=== PATIENT | female | born 1955 | race Caucasian/White ===

== ENCOUNTER 2016-11-28 13:34 | Inpatient (IN) | payer OTHER, MEDICARE ==
[~2016-11-28] VITALS: Ht 180.3 cm; Wt 112.0 kg
[~2016-11-28 13:34] MED LIST: ACET325S8 PO; ENOX40P SQ; HYDR-3580 PO; LEFL20TA7 PO; LEVO150T7 PO; ROPI2 PO; VITA-13 PO; Z.0.COMMODE-3:1; [UNRECOGNIZED DRUG - OTHER]
[2016-11-30] MEDS ORDERED: ROPI2TAB PO (14:36)
[2016-11-30] MEDS ORDERED: VERA1TAB10 PO (14:36)
[2016-11-30] MEDS ORDERED: HYDR-3580 PO (14:36)
[2016-11-30] MEDS ORDERED: LEFL1TAB3 PO (14:36)
[2016-11-30] MEDS ORDERED: LEVO150T7 PO (14:36)
[2016-11-30] MEDS ORDERED: CYCL1TAB29 PO (14:37)
[2016-11-30] MEDS ORDERED: CHOL50008 PO (14:40)
[2016-11-30] MEDS ORDERED: INUL6.5C PO (14:40)
[2016-11-30] MEDS ORDERED: VITA10004 PO (14:40)
[2016-11-30] MEDS ORDERED: CALCTAB75 PO (14:40)
[2016-12-04] MEDS ORDERED: SODIUM CHLORID 0.9% 500 ML IV PRN (05:30)
[2016-12-04] MEDS ORDERED: CHLORHEXIDINE GLUCONATE 2 % 1 PACK (2 CLOTHS) TOPICAL PRN (05:30)
[2016-12-04] MEDS ORDERED: LACTATED RINGER'S 1000 ML IV PRN (05:30)
[2016-12-04] MEDS ORDERED: POVIDONE IODINE 5% (ANTISEPSIS KIT) 4 APPLICATIONS EACH NARE PRN (05:30)
[2016-12-04] MEDS ORDERED: METOPROLOL TARTRATE 25 MG TAB PO PRN (05:30)
[2016-12-04] MEDS ORDERED: INSULIN HUMAN REGULAR 1,000 UNITS/10 ML VIAL SQ PRN (05:30)
[2016-12-04] MEDS ORDERED: SODIUM CHLORIDE 0.9% INJ 100 ML ONE (05:43)
[2016-12-04] MEDS ORDERED: CHLORHEXIDINE GLUCONATE 4% SOLN 120 ML BTL TOPICAL SCH (05:45)
[2016-12-04] MEDS ORDERED: VANCOMYCIN 1000 MG/NS 250 ML (for <70 kg) IV SCH ×2 (05:45)
[2016-12-04] MEDS ORDERED: POVIDONE IODINE 7.5% SCRUB 118 ML BOTTLE TOPICAL SCH (05:45)
[2016-12-04] MEDS ORDERED: CLINDAMYCIN 900 MG/NS 100 ML IV SCH ×2 (05:45)
[2016-12-04 05:53] VITALS: BP 179/89; PULSE 70; RESP 20; TEMP 98.1; O2SAT 99
[2016-12-04] MEDS ORDERED: GENTAMICIN SULFATE 80 MG/2 ML VIAL ONE (06:15)
[2016-12-04] MEDS ORDERED: DEXAMETHASONE SOD PHOS 4 MG/ML VIAL ONE (06:36)
[2016-12-04] MEDS ORDERED: fentaNYL CITRATE 250 MCG/5 ML AMP ONE (06:36)
[2016-12-04] MEDS ORDERED: HYDROmorphone HCL PF 2 MG/ML VIAL ONE (06:36)
[2016-12-04] MEDS ORDERED: FAMOTIDINE 20 MG/2 ML VIAL ONE (06:36)
[2016-12-04] MEDS ORDERED: MIDAZOLAM HCL 2 MG/2 ML VIAL ONE (06:36)
[2016-12-04] MEDS: SODIUM CHLOR 0.9% 1000 ML INJ 1,000 ML IV SCH ×2 (06:41→15:34)
[2016-12-04] MEDS ORDERED: HYDR-3288 PO (06:44)
[2016-12-04] MEDS ORDERED: ZOLPIDEM TARTRATE 5 MG TAB PO PRN (06:45)
[2016-12-04] MEDS ORDERED: HYDROmorphone HCL PF 2 MG/ML VIAL IV PRN (06:45)
[2016-12-04] MEDS ORDERED: ACETAMINOPHEN/HYDROcodone 325 MG/7.5 MG TAB PO PRN (06:45)
[2016-12-04] MEDS ORDERED: ONDANSETRON HCL 4 MG/2 ML VIAL IVP PRN (06:45)
[2016-12-04] MEDS ORDERED: NALOXONE HCL 0.4 MG/ML AMP IV PRN (06:45)
[2016-12-04] MEDS ORDERED: BISACODYL 10 MG SUPP RECTAL PRN (06:45)
[2016-12-04] MEDS ORDERED: SODIUM CHLORIDE 0.9% FLUSH 5 ML FLUSH IVF PRN (06:45)
[2016-12-04] MEDS ORDERED: ALUMINUM/MAGNESIUM/SIMETH 30 ML CUP PO PRN (06:45)
[2016-12-04] MEDS ORDERED: Post-op Orders (for Pharmacy) MISC XX ONE (06:45)
[2016-12-04] MEDS ORDERED: diphenhydrAMINE HCL 50 MG/ML VIAL IV PRN (06:45)
[2016-12-04] MEDS ORDERED: TRANEXAMIC ACID IV SCH (07:00)
[2016-12-04] MEDS ORDERED: TRANEXAMIC PERI-ARTICULAR 3,000 MG/NS 100 ML P-ARTICULR SCH ×2 (07:00)
[2016-12-04] MEDS ORDERED: EXPAREL PERI-ARTICULAR INJECTION (TOTAL VOL. 60 ML) P-ARTICULR SCH ×2 (07:00)
[2016-12-04] MEDS ORDERED: SODIUM CHLORIDE 0.9% IV SCH (07:00)
[2016-12-04] MEDS: SODIUM CHLORIDE 0.9% FLUSH 5 ML FLUSH IVF SCH ×2 (09:00→19:39)
[2016-12-04] MEDS: VERAPAMIL HCL 180 MG SUSTAINED RELEASE TAB PO SCH (09:00)
[2016-12-04] MEDS ORDERED: DO NOT ADM ANY ANTICOAGULANT DRUGS PRN (09:15)
[2016-12-04] MEDS ORDERED: *HYDROmorphone PF 1 MG VIAL PERIprocedural Use ONLY ONE (09:28)
--- NOTE | 2016-12-04 10:39 | RADRPT ---
EXAM DATE/TIME: 12/04/2016 09:55 [place] COMPARISON: No previous studies available for comparison. INDICATIONS : Post op left total hip replacement. MEDICAL HISTORY : Unobtainable. SURGICAL HISTORY : Right total hip. ENCOUNTER: Subsequent ACUITY: 1 day PAIN SCORE: Non-responsive. LOCATION: Left hip. FINDINGS: Total hip arthroplasties are present. Surgery on the left appears recent with air in the adjacent sof t tissues. Hardware is intact. Alignment is anatomic. Pelvis is otherwise focally unremarkable. CONCLUSION: Satisfactory appearance post left DANNY Gerardo Campbell MD on December 04, 2016 at 10:36 Board Certified Radiologist. This report was verified electronically.
[2016-12-04 10:45] VITALS: BP 135/68; PULSE 65; RESP 18; TEMP 95.3; O2SAT 97
[2016-12-04] MEDS: ACETAMINOPHEN/HYDROcodone 325 MG/7.5 MG TAB PO PRN ×3 (11:17→19:37)
[2016-12-04 11:49] VITALS: O2SAT 97
--- NOTE | 2016-12-04 13:01 | HHI.DCPOC ---
Discharge Care Plan Diagnosis: (1) Primary localized osteoarthrosis, pelvic region and thigh Your Health Problems Are: Difficulty with ADL Goals to Promote Your Health * To prevent worsening of your condition and complications * To maintain your health at the optimal level Directions to Meet Your Goals Take your medications as prescribed Follow your dietary instruction Follow activity as directed Keep your appointments as scheduled Take your immunizations and boosters as scheduled If your symptoms worsen call your PCP, if no PCP go to Urgent Care Center or Emergency Room Smoking is Dangerous to Your Health. Avoid second hand smoke Call the 24-hour hour crisis hotline for domestic abuse at Mehran Flores December 04, 2016 13:01
--- NOTE | 2016-12-04 13:03 | HHI.FF ---
Face to Face Verification Diagnosis: (1) Primary localized osteoarthrosis, pelvic region and thigh Physical Therapy Gait training, Safety evaluation, Transfer training, bed to chair Hip: Total hip, Protocol: Left Canvas Knee Splint: When in bed & 2 pillows btw thighs Left LE Weight Bearing: WB as tolerated Nursing RN: 3 days/week x 2 weeks Nursing: Moiz teaching, Dressing changes Dressing Changes: Daily dressing change I have seen patient Aniyah Hansen on 12/04/16. My clinical findings support the need for the requested home health care services because: Limited ability to care for self High risk of falls I certify that my clinical findings support that this patient is homebound because: Post-op weakness Unsteady gait/balance Mehran Flores December 04, 2016 13:03
[2016-12-04] MEDS ORDERED: PROPOFOL 200 MG/20 ML AMP IV ONE (15:05)
[2016-12-04] MEDS ORDERED: NEOSTIGMINE 3 MG/3 ML SYR IV ONE (15:05)
[2016-12-04] MEDS ORDERED: LACTATED RINGER'S 1000 ML INJ 1,000 ML IV ONE (15:05)
[2016-12-04] MEDS ORDERED: ONDANSETRON HCL 4 MG/2 ML VIAL IV PUSH ONE (15:05)
[2016-12-04] MEDS: VANCOMYCIN INJ 1,000 MG in SODIUM CHLOR 0.9% 250 ML INJ 250 ML IV SCH (15:29)
[2016-12-04 15:34] VITALS: BP 162/101; PULSE 61; RESP 16; TEMP 95.5; O2SAT 100
--- NOTE | 2016-12-04 15:46 | PD.CONS ---
[facility] Request[facility] By DR. ESTEFANI MARTINEZ Reason for Consult Medical Management Primary Care Physician Alicia Birmingham MD Diagnoses: History of Present Illness This is a pleasant 61 y/o Female who has Left hip pain since May 2016, as severe pain progressive and interferes with her activities of daily living, was tried extensive conservative treatment including Physical therapy without improvement scheduled for Left Total Hip Arthroplasty. she has Hypothyroidism, Restless leg syndrome, Hypertension, Seen in her bedroom in the presence of her no complaint. was working already with Physical therapy. Review of Systems Musculoskeletal: COMPLAINS OF: Joint pain Past Family Social History Allergies: Coded Allergies: Morphine (Unverified Allergy, Severe, SEVERE VOMITING, 12/04/16) Nonsteroidal Anti-Inflammatory Agts (Verified Allergy, Mild, RASH, 12/04/16) Penicillin (Verified Allergy, Mild, RASH, 12/04/16) Aspirin (Verified Allergy, Unknown, S/P STOMACH STAPLING--CAN'T TAKE ASA, 12/04/16) S/P STOMACH STAPLING Uncoded Allergies: AMNIOTIC FLUID (Allergy, Severe, SEVERE RASH, 02/24/14) Past Medical History Hypertension Hypothyroidism OA Restless leg syndrome Gout Past Surgical History Bilateral Total Knee arthroplasty Right Total Hip arthroplasty VERONICA Gastric Surgery Cholecystectomy Thyroid surgery Tonsillectomy Reported Medications Reported Meds & Active Scripts Active Proctor (Hydrocodone-Acetaminophen) 7.5-325 mg Tab 1-2 Tab PO Q6H PRN Reported Vitamin D3 (Cholecalciferol) 5,000 Unit Tab 5,000 Units PO DAILY Vitamin B12 Tr (Cyanocobalamin) 1,000 Mcg Tab 5,000 Mcg PO DAILY Calcium Citrate +D (Calcium Citrate-Vitamin D) 315-250 Mg-Unit Tab 1 Tab PO DAILY Fiber Choice Fruity Bites (Inulin) 1.5 Gm Chw 1 Chew PO DAILY Flexeril (Cyclobenzaprine HCl) 10 Mg Tab 10 Mg PO TID Ropinirole 2 Mg Tab 2 Mg PO BID Levothyroxine (Levothyroxine Sodium) 150 Mcg Tab 150 Mcg PO DAILY Verapamil ER (Verapamil HCl) 180 Mg Tab 180 Mg PO DAILY Hydrocodone-Acetaminophen 7.5-325 mg Tab 1 Tab PO Q4H PRN Active Ordered Medications Current Medications Medications (Trade) Dose Ordered Sig/Giuliana Route Start Time Stop Time Status Last Admin Lactated Ringer's 1,000 ml @ 30 mls/hr Q24H PRN IV 12/04/16 05:30 12/07/16 05:29 12/04/16 06:00 (NS 500 ml Inj) 500 ml @ 30 mls/hr [id number] PRN IV 12/04/16 05:30 12/07/16 05:29 (Betadine 7.5% Scrub) 1 applic ONCE TOPICAL 12/04/16 05:45 12/07/16 05:44 (Hibiclens 4% Top Soln) 1 applic ONCE TOPICAL 12/04/16 05:45 12/07/16 05:44 (Synthroid) 150 mcg DAILY@06 PO 12/05/16 06:00 (Requip) 2 mg BID PO 12/04/16 09:00 Verapamil HCl 180 mg 180 mg DAILY PO 12/04/16 09:00 (NS 1000 ml Inj) 1,000 ml @ 100 mls/hr Q10H IV 12/04/16 06:41 12/04/16 06:41 (NS Flush) 2 ml UNSCH PRN IVF 12/04/16 06:45 IV Flush 2 ml 2 ml BID IVF 12/04/16 09:00 (Vancomycin Inj/ NS 250 ml Inj) 250 ml @ 250 mls/hr Q12H IV 12/04/16 18:00 12/05/16 06:59 12/04/16 15:29 (Lovenox Inj) 40 mg Q24H SQ 12/05/16 08:00 12/14/16 08:01 (Dilaudid Pf Inj) 1 mg Q3H PRN IV 12/04/16 06:45 (Proctor 7.5-325 Mg) 1 tab Q4H PRN PO 12/04/16 06:45 (Proctor 7.5-325 Mg) 2 tab Q4H PRN PO 12/04/16 06:45 12/04/16 15:28 (Theragran M Tab) 1 tab BID PO 12/05/16 21:00 02/03/17 20:59 (Zofran Inj) 4 mg Q6H PRN IVP 12/04/16 06:45 (Colace) 100 mg BID PO 12/05/16 21:00 (Mag-Al Plus Susp Liq) 30 ml Q6H PRN PO 12/04/16 06:45 (Ambien) 5 mg HS PRN PO 12/04/16 06:45 (Dulcolax Supp) 10 mg DAILY PRN RECTAL 12/04/16 06:45 (Narcan Inj) 0.4 mg UNSCH PRN IV 12/04/16 06:45 (Benadryl Inj) 25 mg Q6H PRN IV 12/04/16 06:45 12/04/16 11:18 Miscellaneous Information ALL NURSING DEPARTME... UNSCH PRN .XX 12/04/16 09:15 12/05/16 09:14 Family History Mother with breast Cancer Father with Prostate cancer Social History Lives with her , was heavy tobacco dependent and denies other toxic habits. Physical Exam Vital Signs Vital Signs Date Time Temp Pulse Resp B/P Pulse Ox O2 Delivery O2 Flow Rate FiO2 12/04/16 11:49 97 12/04/16 10:45 95.3 65 18 135/68 97 12/04/16 10:15 65 18 149/59 100 Room Air 12/04/16 10:00 69 20 146/63 99 Room Air 12/04/16 09:45 62 13 125/58 95 Room Air 12/04/16 09:30 69 20 136/61 100 Nasal Cannula 2 12/04/16 09:15 97.5 67 20 147/68 100 Nasal Cannula 2 12/04/16 05:53 98.1 70 20 179/89 99 Physical Exam GENERAL: Obesity, well-developed patient, in no apparent distress. SKIN: No rashes, ecchymoses or lesions. Cool and dry. HEAD: Atraumatic. Normocephalic. No temporal or scalp tenderness. EYES: Pupils equal round and reactive. Extraocular motions intact. ENT: Nose without bleeding. NECK: Trachea midline. No JVD or lymphadenopathy. Supple, nontender, no meningeal signs. CARDIOVASCULAR: Regular rate and rhythm. RESPIRATORY: Clear to auscultation. Breath sounds equal bilaterally. No wheezes , rales, or rhonchi. GASTROINTESTINAL: Abdomen soft, non-tender, nondistended MUSCULOSKELETAL: Extremities without clubbing, cyanosis, left hip dressed. NEUROLOGICAL: Awake and alert. Cranial nerves II through XII intact. Laboratory Laboratory Tests Test 12/04/16 05:40 Blood Type O POSITIVE Antibody Screen NEGATIVE Imaging Last Impressions Hip and Pelvis X-Ray 12/04/16 0641 Signed Impressions: Service Date/Time: Sunday, December 04, 2016 09:55 - CONCLUSION: Satisfactory appearance post left DANNY Gerardo Campbell MD Assessment and Plan Assessment and Plan 1. Severe OA of the Left Hip status post scheduled Left total Hip arthroplasty continue Pain medicine, probable discharge by tomorrow. senior manager and PT for discharge. 2. Hypertension continue Home medicines 3. Hypothyroidism continue Hormonal replacement 4. Restless leg syndrome to continue Home medicines. 5. Obesity strongly recommended diet and exercise. DVT prophylaxis by Orthopedic Surgery. Code Status Full Code. Discussed Condition With Patient and her in the room. Tarun Mcdowell MD December 04, 2016 15:45
[2016-12-04 19:00] VITALS: BP 195/86; PULSE 75; RESP 18; TEMP 97.7; O2SAT 100
[2016-12-04 21:23] VITALS: O2SAT 98
[2016-12-05] VITALS: BP 142/72; PULSE 84; RESP 16; TEMP 98.6; O2SAT 100
[2016-12-05] MEDS: SODIUM CHLOR 0.9% 1000 ML INJ 1,000 ML IV SCH (00:55)
[2016-12-05 04:00] VITALS: BP 140/63; PULSE 85; RESP 16; TEMP 99.9; O2SAT 100
[2016-12-05] MEDS: ACETAMINOPHEN/HYDROcodone 325 MG/7.5 MG TAB PO PRN ×3 (04:24→12:31)
[2016-12-05] MEDS: VANCOMYCIN INJ 1,000 MG in SODIUM CHLOR 0.9% 250 ML INJ 250 ML IV SCH (04:24)
[2016-12-05] MEDS ORDERED: LEVOTHYROXINE SODIUM 150 MCG TAB PO SCH (06:00)
[2016-12-05] MEDS ORDERED: ENOXAPARIN SODIUM 40 MG/0.4 ML SYRINGE SQ SCH (08:00)
[2016-12-05 08:02] VITALS: BP 120/75; PULSE 81; RESP 18; TEMP 98.9; O2SAT 100
[2016-12-05] MEDS: VERAPAMIL HCL 180 MG SUSTAINED RELEASE TAB PO SCH (08:08)
[2016-12-05] MEDS: SODIUM CHLORIDE 0.9% FLUSH 5 ML FLUSH IVF SCH (08:12)
--- NOTE | 2016-12-05 08:15 | PD.ORT.PN ---
Subjective Post Op Day #: 1 Subjective Remarks doing very well. minimal pain. walked extensively with PT yesterday. ready to go home. Objective Vitals Vital Signs Date Time Temp Pulse Resp B/P Pulse Ox O2 Delivery O2 Flow Rate FiO2 12/05/16 08:02 98.9 81 18 120/75 100 12/05/16 07:20 Room Air 12/05/16 04:00 99.9 85 16 140/63 100 12/05/16 00:00 98.6 84 16 142/72 100 12/04/16 21:23 98 21 12/04/16 19:00 97.7 75 18 195/86 100 12/04/16 15:34 95.5 61 16 162/101 100 12/04/16 11:49 97 12/04/16 10:45 95.3 65 18 135/68 97 12/04/16 10:15 65 18 149/59 100 Room Air 12/04/16 10:00 69 20 146/63 99 Room Air 12/04/16 09:45 62 13 125/58 95 Room Air 12/04/16 09:30 69 20 136/61 100 Nasal Cannula 2 12/04/16 09:15 97.5 67 20 147/68 100 Nasal Cannula 2 I/O 12/04/16 12/04/16 12/04/16 12/05/16 12/05/16 12/05/16 07:00 15:00 23:00 07:00 15:00 23:00 Intake Total 1820 ml 1230 ml 480 ml Output Total 1400 ml Balance 420 ml 1230 ml 480 ml Intake Oral 720 ml 480 ml 480 ml IV Total 750 ml Other 1100 ml Output Urine Total 1100 ml Estimated Blood Loss 300 ml # Voids 2 3 # Bowel Movements 0 0 0 Objective Remarks in chair, nad incision no erythema, no drainage thigh soft neg homans nvi Assessment & Plan Ortho Post Op Day #: 1 Problem List: Assessment and Plan s/p L DANNY posterior approach wbat with posterior hip precautions daily dressing changes lovenox d/c planning home with [facility] and pt - cleared for today rx in chart f/up dr. polk 2 weeks Mehran Flores December 05, 2016 08:15
--- NOTE | 2016-12-05 08:26 | HHI.PR ---
Subjective Remarks This is a pleasant 61 y/o Female who has Left hip pain since May 2016, as severe pain progressive and interferes with her activities of daily living, was tried extensive conservative treatment including Physical therapy without improvement scheduled for Left Total Hip Arthroplasty. she has Hypothyroidism, Restless leg syndrome, Hypertension, Seen in her bedroom in the presence of her no complaint. was working already with Physical therapy. 12/05: Seen in her bedroom and as per Orthopedic surgery okay to discharge later today, agree the patient is stable from medicine standpoint, and No nausea, vomit or diarrhea. followed laboratory within normal limits. Objective Vital Signs Date Time Temp Pulse Resp B/P Pulse Ox O2 Delivery O2 Flow Rate FiO2 12/05/16 08:02 98.9 81 18 120/75 100 12/05/16 07:20 Room Air 12/05/16 04:00 99.9 85 16 140/63 100 12/05/16 00:00 98.6 84 16 142/72 100 12/04/16 21:23 98 21 12/04/16 19:00 97.7 75 18 195/86 100 12/04/16 15:34 95.5 61 16 162/101 100 12/04/16 11:49 97 12/04/16 10:45 95.3 65 18 135/68 97 12/04/16 10:15 65 18 149/59 100 Room Air 12/04/16 10:00 69 20 146/63 99 Room Air 12/04/16 09:45 62 13 125/58 95 Room Air 12/04/16 09:30 69 20 136/61 100 Nasal Cannula 2 12/04/16 09:15 97.5 67 20 147/68 100 Nasal Cannula 2 I/O 12/04/16 12/04/16 12/04/16 12/05/16 12/05/16 12/05/16 07:00 15:00 23:00 07:00 15:00 23:00 Intake Total 1820 ml 1230 ml 480 ml Output Total 1400 ml Balance 420 ml 1230 ml 480 ml Intake Oral 720 ml 480 ml 480 ml IV Total 750 ml Other 1100 ml Output Urine Total 1100 ml Estimated Blood Loss 300 ml # Voids 2 3 # Bowel Movements 0 0 0 Imaging Last Impressions Hip and Pelvis X-Ray 12/04/16 0641 Signed Impressions: Service Date/Time: Sunday, December 04, 2016 09:55 - CONCLUSION: Satisfactory appearance post left DANNY Gerardo Campbell MD Procedures Severe OA of the Left Hip status post Left total Hip arthroplasty Other Results Laboratory Tests Test 12/04/16 05:40 Blood Type O POSITIVE Antibody Screen NEGATIVE Objective Remarks GENERAL: Obesity, well-developed patient, in no apparent distress. SKIN: No rashes, ecchymoses or lesions. Cool and dry. HEAD: Atraumatic. Normocephalic. No temporal or scalp tenderness. EYES: Pupils equal round and reactive. Extraocular motions intact. ENT: Nose without bleeding. NECK: Trachea midline. No JVD or lymphadenopathy. Supple, nontender, no meningeal signs. CARDIOVASCULAR: Regular rate and rhythm. RESPIRATORY: Clear to auscultation. Breath sounds equal bilaterally. No wheezes , rales, or rhonchi. GASTROINTESTINAL: Abdomen soft, non-tender, nondistended MUSCULOSKELETAL: Extremities without clubbing, cyanosis, left hip dressed. NEUROLOGICAL: Awake and alert. Cranial nerves II through XII intact. Medications and IVs Current Medications Medications (Trade) Dose Ordered Sig/Giuliana Route Start Time Stop Time Status Last Admin Lactated Ringer's 1,000 ml @ 30 mls/hr Q24H PRN IV 12/04/16 05:30 12/07/16 05:29 12/04/16 06:00 (NS 500 ml Inj) 500 ml @ 30 mls/hr [id number] PRN IV 12/04/16 05:30 12/07/16 05:29 (Betadine 7.5% Scrub) 1 applic ONCE TOPICAL 12/04/16 05:45 12/07/16 05:44 (Hibiclens 4% Top Soln) 1 applic ONCE TOPICAL 12/04/16 05:45 12/07/16 05:44 (Synthroid) 150 mcg DAILY@06 PO 12/05/16 06:00 12/05/16 04:24 (Requip) 2 mg BID PO 12/04/16 09:00 12/05/16 08:09 Verapamil HCl 180 mg 180 mg DAILY PO 12/04/16 09:00 12/05/16 08:08 (NS 1000 ml Inj) 1,000 ml @ 100 mls/hr Q10H IV 12/04/16 06:41 12/04/16 06:41 (NS Flush) 2 ml UNSCH PRN IVF 12/04/16 06:45 (NS Flush) 2 ml BID IVF 12/04/16 09:00 (Lovenox Inj) 40 mg Q24H SQ 12/05/16 08:00 12/14/16 08:01 12/05/16 08:08 (Dilaudid Pf Inj) 1 mg Q3H PRN IV 12/04/16 06:45 ([place] 7.5-325 Mg) 1 tab Q4H PRN PO 12/04/16 06:45 12/04/16 23:47 ([place]ett 7.5-325 Mg) 2 tab Q4H PRN PO 12/04/16 06:45 12/05/16 08:08 (Theragran M Tab) 1 tab BID PO 12/05/16 21:00 02/03/17 20:59 (Zofran Inj) 4 mg Q6H PRN IVP 12/04/16 06:45 (Colace) 100 mg BID PO 12/05/16 21:00 (Mag-Al Plus Susp Liq) 30 ml Q6H PRN PO 12/04/16 06:45 (Ambien) 5 mg HS PRN PO 12/04/16 06:45 (Dulcolax Supp) 10 mg DAILY PRN RECTAL 12/04/16 06:45 (Narcan Inj) 0.4 mg UNSCH PRN IV 12/04/16 06:45 (Benadryl Inj) 25 mg Q6H PRN IV 12/04/16 06:45 12/04/16 11:18 Miscellaneous Information ALL NURSING DEPARTME... UNSCH PRN .XX 12/04/16 09:15 12/05/16 09:14 A/P Assessment and Plan 1. Severe OA of the Left Hip status post scheduled Left total Hip arthroplasty continue Pain medicine, probable discharge by tomorrow. portfolio manager and PT for discharge. 2. Hypertension controlled. 3. Hypothyroidism continue Hormonal replacement 4. Restless leg syndrome to continue Home medicines. 5. Obesity strongly recommended diet and exercise. DVT prophylaxis by Orthopedic Surgery. Code Status Full Code. Discussed Condition With patient Discharge Planning As per Attending physician Tarun Mcdowell MD December 05, 2016 08:26
[2016-12-05 08:58] LABS: BICARBONATE 27.9 MEQ/L (21.0-32.0); MAGNESIUM 2.2 MG/DL (1.5-2.5); POTASSIUM 4.8 MEQ/L (3.5-5.1)
[2016-12-05 09:02] LABS: HEMATOCRIT 36.9 % (35.0-46.0); MEAN CELL VOLUME 97.5 FL (80.0-100.0); MEAN CORPUSCULAR HEMOGLOBIN 33.5 PG (27.0-34.0); MEAN CORPUSCULAR HGB CONC 34.3 % (32.0-36.0); PLATELET COUNT 238 TH/MM3 (150-450); RED BLOOD COUNT 3.78 MIL/MM3 (4.00-5.30); RED CELL DISTRIBUTION WIDTH 13.4 % (11.6-17.2); REVIEW FLAG FINAL; WHITE BLOOD COUNT 8.4 TH/MM3 (4.0-11.0)
--- NOTE | 2016-12-05 09:33 | MP ---
cc: ESTEFANI MARTINEZ DATE OF SURGERY 12/04/2016 PREOPERATIVE DIAGNOSIS Left hip osteoarthritis. POSTOPERATIVE DIAGNOSIS Left hip osteoarthritis. PROCEDURE Left total hip arthroplasty. SURGEON Dr. Estefani Martinez DIRECTOR WORK Harmeet Flores PA-C. ANESTHESIA General. ESTIMATED BLOOD LOSS 100 cc. COMPLICATIONS None. IMPLANTS USED DePuy Corail size 16, press-fit standard offset femoral stem, size 58 solid Hazlet Gription cup, size 36-mm ceramic head, +1.5 neck, +4 highly cross-linked polyethylene liner with a 15-degree posterior high wall. JUSTIFICATION This patient is 61-year-old female with a history of severe end-stage degenerative osteoarthritis involving the left hip. She has severe, disabling pain with standing, walking, ambulation with weightbearing activities, even severe pain at rest. In the addition of the above diagnosis, she has history of morbid obesity and also rheumatoid arthritis. She has severe pain which interferes with activities of daily living. She has failed greater than three months of nonoperative conservative treatment to include medication therapy, ambulatory assistive aids, home exercise program, activity modification as well as weight loss. X-rays of the left hip reveal severe end-stage osteoarthritis with [id number] joint space narrowing, subchondral sclerosis, subchondral cysts, osteophyte formation and subluxation. The patient was counseled as to the risks, benefits and alternatives to total hip arthroplasty. The risks were discussed which include but are not limited to anesthesia, bleeding, infection, damage to nerves, blood vessels, pain, stiffness, failure of the components, leg length discrepancies, blood clots, dislocation, pulmonary embolism and even . The patient's pain is severe. She favored the benefits over the risks and did wish to proceed with surgery. PROCEDURE IN DETAIL Written consent was obtained. The patient was identified by name and taken to the operating room, placed supine on the operating room table. General anesthesia was administered as well as 900 mg of clindamycin and 1 gram of IV vancomycin. SHE HAS A PENICILLIN ALLERGY. The patient was carefully turned to a right lateral decubitus position. A lateral arm roll was placed. All bony prominences and pressure points were well padded. The left hip and left lower extremity were prepped and draped using isopropyl alcohol, Hibiclens solution and Chloraprep solution. After the time-out was performed, a longitudinal incision was made over the anterolateral aspect of the left hip. The deep fascia layer was incised. The piriformis and capsule were incised and tagged with #2 FiberWire suture. The femoral head was dislocated. An oscillating saw was used to perform a femoral neck cut. Attention was turned to excise the labrum and sequential reaming began at size 51 and was carried through size 58. Subsequently, a solid Hazlet Gription cup was impacted and press-fit in approximately 45 degrees of abduction and 15 degrees of anteversion. There was good purchase and fixation. After insertion of the cup, a screw hole eliminator was placed, followed by the +4 highly cross-linked polyethylene liner. The liner was impacted in place and tested for stability. Attention was then turned to the femur where a box-cutting osteotome was used to gain entrance into the intramedullary canal of the femur. This was followed by a canal finder, lateralizing reamer, sequential broaching up to size 16. This was followed by a calcar planer. Trial head and neck combinations were evaluated and the final component implanted with the current implants. The leg could achieve full extension and external rotation without evidence of anterior instability or impingement. The hip could be flexed 90 degrees and internal rotated 70 degrees before evidence of posterior instability. Soft tissue tension felt appropriate. The surgical wound was thoroughly irrigated with sterile saline pulse lavage antibiotic-impregnated solution. The piriformis capsule was repaired with #2 FiberWire suture, the fascial layer with #1 Vicryl suture, the subcutaneous layer with 2-0 Vicryl suture. The skin was closed with Dermabond. Sterile dressings were applied. The patient tolerated the procedure well, no intraoperative complications were noted. Harmeet Flores, physician events administrative assistant certified, was present during the entire procedure to include patient positioning and the procedure itself. The medical necessity of a physician events administrative assistant was indicated in this case due to the complexity of the procedure itself. He assisted with appropriate manipulation of the leg and also retraction of muscle, tendon and neurovascular structures. He assisted with preparation of bone and also implantation of the prosthetic replacement. Estefani Martinez MD JWEloise/BETH /8:49 AM /9:08 AM
[2016-12-05] MEDS ORDERED: MULTIVITAMINS/MINERALS THERAPEUTIC TAB PO SCH (21:00)
[2016-12-05] MEDS ORDERED: DOCUSATE SODIUM 100 MG CAP PO SCH (21:00)
--- NOTE | 2016-12-06 12:10 | MD ---
cc: ESTEFANI BOLTON ADMISSION DATE: 12/04/2016 DISCHARGE DATE: 12/05/2016 ADMISSION DIAGNOSIS Severe degenerative osteoarthritis left hip. DISCHARGE DIAGNOSIS Severe degenerative osteoarthritis left hip. HISTORY OF PRESENT ILLNESS Mrs. Hansen is a 61-year-old female who presented to the orthopedic clinic of [place] for evaluation by Dr. Estefani Bolton regarding her severe and progressive left hip pain. The patient states the pain in her left hip has been progressive for numerous years and is currently inhibiting her activities of daily living. She does have a history of a well-functioning right total hip arthroplasty from 2013. The patient states the pain in her left hip is a severe constant aching sensation that is aggravated by weightbearing activities. She has no alleviating factors at this point in time, although in the past, she has tried medications, assistive devices, weight loss attempts, physical therapy, home exercise and even corticosteroid injection without relief of symptoms. She does have x-ray evidence of severe degenerative osteoarthritis of the left hip. While in the office, the patient was counseled on her diagnosis and treatment options. The risks, benefits, indications were all discussed in great detail. The patient did elect to proceed with surgical intervention to include a left total hip arthroplasty. Date of surgery 12/04/2016 left total hip arthroplasty posterior approach. Postop after surgery, the patient admitted to [facility] where she received appropriate medical management, pain control, DVT prophylaxis, as well as physical therapy and discharged. Once being discharged from the hospital, the patient is cleared to go home where she will receive home health care and home physical therapy. She is in stable condition. She may weight-bear as tolerated with posterior hip precautions. She is to receive daily dressing changes and has been instructed on appropriate wound care management. The patient has been provided a follow-up appointment to see Dr. Estefani Bolton in the office in approximately two weeks from her date of surgery. The patient has asked appropriate questions which have all been answered. The patient is cleared for discharge. Dictated by QUENTIN Garvey MD RODGER Cagle/LEONA /8:19 AM /12:07 PM
== END 2016-12-05 13:11 | disposition home health service (06) | DRG 470 ==
LOC: HSDI 12-04 05:05 → N06B 12-04 10:38
PROVIDERS: ADMIT Orthopaedic Surgery Sports Medicine; ATTEND Orthopaedic Surgery Sports Medicine
PROC: 0SRB04A Replacement of Left Hip Joint with Ceramic on Polyethylene Synthetic Substitute, Uncemented, Open Approach (ICD-10-PCS; principal; 2016-12-04 06:45)
DX: M16.12 Unilateral primary osteoarthritis, left hip (principal); E66.01 Morbid (severe) obesity due to excess calories; I10 Essential (primary) hypertension; M06.9 Rheumatoid arthritis, unspecified; E03.9 Hypothyroidism, unspecified; G25.81 Restless legs syndrome; Z68.34 Body mass index [BMI] 34.0-34.9, adult; Z88.0 Allergy status to penicillin; Z88.5 Allergy status to narcotic agent; Z88.6 Allergy status to analgesic agent; M10.9 Gout, unspecified; Z96.653 Presence of artificial knee joint, bilateral; Z96.641 Presence of right artificial hip joint
CPT/HCPCS: 73502; 80048; 83735; 84100; 85027; 86850; 86900; 86901; 94150; C1776; C9290; J1100; J1170; J1200; J1580; J1650; J2250; J2405; J2710; J3010; J3370; J7030; J7050; J7120; L1830